=== PATIENT | male | born 1965 | race Caucasian/White ===

== ENCOUNTER 2021-05-02 17:23 | Emergency (ER) | payer BC ==
[~2021-05-02 17:23] MED LIST: ATIVAN0.5 MG PO; COREG 25MG TAB25 MG PO; FIORICET TAB1 EA PO; FOLIC ACID 1 MG1 MG PO; VITAMIN B-1100 MG PO
[2021-05-02 18:22] LABS: HEMOGLOBIN 17.1 gm/dl (14.0-17.5); RED BLOOD COUNT 5.32 M/UL (4.20-5.50); WHITE BLOOD COUNT 6.1 K/UL (4.5-11.0)
[2021-05-02 18:39] LABS: BUN/CREATININE RATIO 10 (0-10)
[2021-05-04 16:11] LABS: LYME IGG/IGM AB <0.91 ISR (0.00-0.90)
== END 2021-05-02 22:00 | disposition short-term general hospital (02) ==
LOC: ER1 17:23
PROVIDERS: Family Medicine
DX: G58.9 Mononeuropathy, unspecified (principal); I10 Essential (primary) hypertension; F10.10 Alcohol abuse, uncomplicated; Y90.9 Presence of alcohol in blood, level not specified; D75.9 Disease of blood and blood-forming organs, unspecified; F17.200 Nicotine dependence, unspecified, uncomplicated; Z88.5 Allergy status to narcotic agent; Z79.899 Other long term (current) drug therapy
CPT/HCPCS: 70450; 70496; 70498; 80053; 81001; 82550; 82553; 82607; 83874; 84484; 85025; 86618; 93005; 96374; 99285